=== PATIENT | male | born 1965 | race Two or more races ===

== ENCOUNTER 2018-06-07 16:47 | Inpatient (IN) | payer BC, OTHER ==
[2018-06-07] MEDS ORDERED: LEVOFLOXACIN 750 MG/D5W RTU 750 MG/150 ML RTUPB IV ONE (19:58)
--- NOTE | 2018-06-07 20:00 | ER Document Report ---
ED Medical Screen (RME) - General Chief Complaint: Foot Pain Stated Complaint: FOOT PAIN, SWELLING,OPEN WOUNDS Time Seen by Provider: 06/07/18 19:56 Notes: 53-year-old male who had a small treatment that involved fish eating on the feet in the [facility] recently. Since he has returned to [place] his feet are extremely swollen and painful with multiple areas of oozing. Denies any other major symptoms. Denies any fever, chills, sweats. Painful to stand up. Tetanus is up-to-date. I have greeted and performed a rapid initial assessment of this patient. A comprehensive ED assessment and evaluation of the patient, analysis of test results and completion of the medical decision making process will be conducted by additional ED providers. TRAVEL OUTSIDE OF THE [place] IN LAST 30 DAYS: No - Related Data Allergies/Adverse Reactions: No Known Allergies Allergy (Verified 06/07/18 16:49) Past Medical History - Social History Frequency of alcohol use: Occasional Drug Abuse: None Renal/ Medical History: Denies: Hx Peritoneal Dialysis Review of Systems - Review of Systems Notes: Review of systems positive for the following: Skin infection bilateral feet, bilateral feet pain, bilateral feet swelling Physical Exam - Vital signs Vitals: Temp Pulse Resp BP Pulse Ox 98.6 F 104 H 18 150/71 H 98 06/07/18 17:44 06/07/18 17:44 06/07/18 17:44 06/07/18 17:44 06/07/18 17:44 - Extremities General upper extremity: Normal inspection, Nontender, Normal color, Normal ROM , Normal temperature General lower extremity: Normal color, Normal ROM, Normal temperature, Other - The bilateral feet have multiple areas of ulceration and drainage. There is large amount of edema to the bilateral feet with signs of cellulitis.. No: David's sign Course - Vital Signs Vital signs: Temp Pulse Resp BP Pulse Ox 98.6 F 104 H 18 150/71 H 98 06/07/18 17:44 06/07/18 17:44 06/07/18 17:44 06/07/18 17:44 06/07/18 17:44
--- NOTE | 2018-06-07 21:36 | RADIOLOGY REPORT (SQ) ---
EXAM DESCRIPTION: FOOT BILATERAL 2 VIEWS COMPLETED DATE/TIME: 06/07/2018 8:34 pm REASON FOR STUDY: swelling, infection COMPARISON: None. NUMBER OF VIEWS: Two views. TECHNIQUE: AP and lateral radiographic images acquired of the right and left foot. LIMITATIONS: None. FINDINGS: MINERALIZATION: Normal. BONES: No acute fracture or dislocation. No worrisome bone lesions. JOINTS: No effusions. SOFT TISSUES: Soft tissue swelling each fluid, right more than left. No air is seen in the soft tiss ues. OTHER: No other significant finding. IMPRESSION: Soft tissue swelling. No osseous abnormality is appreciated. TECHNICAL DOCUMENTATION: JOB ID: [id number] [employer]- All Rights Reserved Reading location - IP/workstation name: [email or web address]
[2018-06-07 21:37] LABS: ABSOLUTE EOSINOPHILS # (AUTO) 0.2 10^3/uL (0.0-0.6); ABSOLUTE LYMPHOCYTES (AUTO) 2.9 10^3/uL (0.5-4.7); ABSOLUTE MONOCYTES (AUTO) 0.7 10^3/uL (0.1-1.4); ABSOLUTE NEUT (AUTO) 5.8 10^3/uL (1.7-8.2); BASOPHILS % (AUTO) 0.3 % (0-2); HEMATOCRIT 46.4 % (37.9-51.0); HEMOGLOBIN 15.8 g/dL (13.5-17.0); MEAN CORPUSCULAR HEMOGLOBIN 28.9 pg (27.0-33.4); MEAN CORPUSCULAR HGB CONC 34.2 g/dL (32.0-36.0); MEAN CORPUSCULAR VOLUME 85 fl (80-97); MONOCYTES % (AUTO) 7.3 % (3-13); PLATELET COUNT 236 10^3/uL (150-450); RED BLOOD COUNT 5.49 10^6/uL (4.35-5.55); RED CELL DISTRIBUTION WIDTH 13.8 % (11.5-14.0); SEGMENTED NEUTROPHILS % (AUTO) 60.4 % (42-78); TOTAL CELLS COUNTED % (AUTO) 100 %; WHITE BLOOD COUNT 9.6 10^3/uL (4.0-10.5)
[2018-06-07 22:05] LABS: ALANINE AMINOTRANSFERASE 31 U/L (21-72); ALBUMIN 4.1 g/dL (3.5-5.0); ALKALINE PHOSPHATASE 115 U/L (38-126); ANION GAP 13 (5-19); ASPARTATE AMINO TRANSFERASE 24 U/L (17-59); BILIRUBIN,DIRECT 0.3 mg/dL (0.0-0.4); BILIRUBIN,TOTAL 0.5 mg/dL (0.2-1.3); BLOOD UREA NITROGEN 14 mg/dL (7-20); CALCIUM 9.6 mg/dL (8.4-10.2); CARBON DIOXIDE 27 mmol/L (22-30); CHLORIDE 106 mmol/L (98-107); GLUCOSE 73 mg/dL (75-110); POTASSIUM 3.9 mmol/L (3.6-5.0); SODIUM 146.3 mmol/L (137-145); TOTAL PROTEIN 7.7 g/dL (6.3-8.2)
[2018-06-08] MEDS ORDERED: MORPHINE SULFATE 10 MG/ML INJ IV ONE (00:18)
[2018-06-08] MEDS ORDERED: ONDANSETRON HCL INJ/PF 4 MG/2 ML SDV IV ONE (00:18)
[2018-06-08] MEDS ORDERED: VANCOMYCIN HCL INJ 1000 MG VIAL IV ONE (00:22)
--- NOTE | 2018-06-08 00:24 | ER Document Report ---
ED General - General Chief Complaint: Foot Pain Stated Complaint: FOOT PAIN, SWELLING,OPEN WOUNDS Time Seen by Provider: 06/07/18 19:56 TRAVEL OUTSIDE OF THE [place] IN LAST 30 DAYS: No - HPI Patient complains to provider of: Bilateral foot pain Notes: Patient coming in for bilateral foot pain. Patient states was recently in the [facility] received a fish pedicure and now for approximately a week has had blistering redness and increased swelling and pain of his feet. Patient denies any fevers chills or night sweats. Patient denies any medical issues. Patient denies any recent antibiotics. Resting comfortably upon my evaluation. - Related Data Allergies/Adverse Reactions: No Known Allergies Allergy (Verified 06/07/18 16:49) Past Medical History - Social History Smoking Status: Current Every Day Smoker Frequency of alcohol use: Occasional Drug Abuse: None Family History: Reviewed & Not Pertinent Patient has suicidal ideation: No Patient has homicidal ideation: No Renal/ Medical History: Denies: Hx Peritoneal Dialysis Review of Systems - Review of Systems Constitutional: No symptoms reported EENT: No symptoms reported Cardiovascular: No symptoms reported Respiratory: No symptoms reported Gastrointestinal: No symptoms reported Genitourinary: No symptoms reported Male Genitourinary: No symptoms reported Musculoskeletal: No symptoms reported Skin: Other - Bilateral feet swelling pain Hematologic/Lymphatic: No symptoms reported Neurological/Psychological: No symptoms reported -: Yes All other systems reviewed and negative Physical Exam - Vital signs Vitals: Temp Pulse Resp BP Pulse Ox 98.6 F 104 H 18 150/71 H 98 06/07/18 17:44 06/07/18 17:44 06/07/18 17:44 06/07/18 17:44 06/07/18 17:44 Interpretation: Normal - General General appearance: Appears well, Alert - HEENT Head: Normocephalic, Atraumatic Eyes: Normal Pupils: PERRL - Respiratory Respiratory status: No respiratory distress Chest status: Nontender Breath sounds: Normal Chest palpation: Normal - Cardiovascular Rhythm: Regular Heart sounds: Normal auscultation Murmur: No - Abdominal Inspection: Normal Distension: No distension Bowel sounds: Normal Tenderness: Nontender Organomegaly: No organomegaly - Back Back: Normal, Nontender - Extremities General upper extremity: Normal inspection, Nontender, Normal color, Normal ROM , Normal temperature General lower extremity: Nontender, Normal color, Normal ROM, Normal temperature , Normal weight bearing. No: Normal inspection - Patient with bilateral swelling to the feet bilateral dorsalis pedis and posterior tibial pulses are intact Refill are intact. Multiple areas of blistering with diffuse redness along with discrimination in between multiple toes bilaterally. With purulent drainage consistent with an acute skin infection., David's sign - Neurological Neuro grossly intact: Yes Cognition: Normal Orientation: AAOx4 [place] Coma Scale Eye Opening: Spontaneous Jorje Coma Scale Verbal: Oriented Jorje Coma Scale Motor: Obeys Commands [place] Coma Scale Total: 15 Speech: Normal Motor strength normal: LUE, RUE, LLE, RLE Sensory: Normal - Psychological Associated symptoms: Normal affect, Normal mood - Skin Skin Temperature: Warm Skin Moisture: Dry Skin Color: Normal Course - Re-evaluation Re-evalutation: 06/08/18 05:09 Due to the exotic nature of the patient's source of infection a fish pedicure also due to the severity of the swelling and the infection looks like at this time do feel the best course to be admitted the patient for further IV antibiotics and further monitoring. Discussed with the hospitalist will admit - Vital Signs Vital signs: Temp Pulse Resp BP Pulse Ox 98.3 F 99 18 136/61 H 97 06/08/18 00:10 06/07/18 20:14 06/07/18 17:44 06/07/18 20:14 06/07/18 20:14 - Laboratory Result Diagrams: 06/07/18 20:53 06/07/18 20:53 Laboratory results interpreted by me: 06/07/18 20:53 Sodium 146.3 H Glucose 73 L Discharge - Discharge Clinical Impression: Cellulitis of both feet Condition: Good Disposition: ADMITTED INPATIENT Admitting Provider: Zoraida Quezada Unit Admitted: Medical Floor
[2018-06-08] MEDS ORDERED: MAG HYDROX/AL HYDROX/SIMETH SUSP 30 ML UDCUP PO PRN (02:45)
[2018-06-08] MEDS ORDERED: PROMETHAZINE HCL INJ 25 MG/1 ML VIAL IV PRN (02:45)
[2018-06-08] MEDS ORDERED: ACETAMINOPHEN 325 MG TABLET PO PRN (02:45)
[2018-06-08] MEDS ORDERED: HYDROMORPHONE HCL INJ/PF 2 MG/ML AMPULE IV PRN (02:55)
[2018-06-08] MEDS ORDERED: DOXYCYCLINE HYCLATE INJ 100 MG VIAL IV ONE (03:10)
--- NOTE | 2018-06-08 03:56 | PDOC H&P ---
History of Present Illness Admission Date/PCP: 06/08/18 00:53 Patient complains of: Feet infection History of Present Illness: BLAYNE BLAKE is a 53 year old male history of chronic back pain, came to the [facility] 1 week ago, he was there 2 weeks ago and tells me that he was at a fish Spa, this was the second time he was going with his family, first time all of them share a pool like space, but this time each of them had an individual glass fish container. The next day he started with a blister in the right lower extremity which opens and clear/brownish liquid spread to the rest of the foot causing same blisters, later on spread to the right foot. He has severe swelling, erythema, excruciating tenderness to palpation to the point that his had to buy crutches for him to walk. Denies fever, chills, nausea, vomiting or shortness of breath, chest pain, abdominal pain, lesions in other areas of his body. X-ray of the foot does not show any gas gangrene but shows soft tissue swelling. In the emergency department given IV Levaquin. Past Medical History Musculoskeltal Medical History: Reports: Other - Chronic back pain Past Surgical History Past Surgical History: Reports: None Social History Smoking Status: Current Every Day Smoker - Cigarettes a day Frequency of Alcohol Use: Occasional Hx Recreational Drug Use: No Family History Parental Family History Reviewed: Yes - No Contributory Children Family History Reviewed: NA Sibling(s) Family History Reviewed.: NA Medication/Allergy Allergies/Adverse Reactions: No Known Allergies Allergy (Verified 06/07/18 16:49) Review of Systems Review of Systems: As outlined in the HPI, all others negative Physical Exam Vital Signs: Temp Pulse Resp BP Pulse Ox 98.3 F 99 18 153/78 H 92 06/08/18 00:10 06/07/18 20:14 06/08/18 03:00 06/08/18 00:03 06/08/18 03:00 Additional comments: General appearance: Well-developed, well-nourished, alert and cooperative, and appears to be in no acute distress Head: Normocephalic Eyes: PEERL, EOMI, vision is grossly intact. Ears: External auditory canal and tympanic membranes clear, hearing grossly intact. Nose: No nasal discharge. Throat: Oral cavity and pharynx normal. No inflammation, swelling, exudate or lesions. Neck: Neck supple, nontender without lymphadenopathy, masses or thyromegaly. Cardiac: Normal S1 and S2. No S3, S4 or murmurs. Rhythm is regular. There is no peripheral edema, cyanosis or pallor. Extremities are warm and well perfused. Capillary refill is less than 2 seconds. No carotid bruits. Lungs: Clear to auscultation and percussion without rales, rhonchi, wheezing or diminished breath sounds. Not using accessory muscles. Abdomen: Positive bowel sounds. Soft. Nondistended, nontender. No guarding or rebound. No masses. No hepatosplenomegaly Extremities:: feet: ruptured blisters with necrotic base, brownish secretion, severe swelling with erythema and excruciating tenderness to palpation. More lesions in between toes and in the plantar area Neurological: Cranial nerves II through XII grossly intact. Strength and sensation symmetric and intact throughout. Reflexes 2+ throughout. Skin: As per above, warm and dry. Psychiatric: The mental examination revealed the patient was oriented to person , place, and time. The patient was able to demonstrate good judgment on recent , without hallucinations, abnormal affect or abnormal behaviors. Results Laboratory Results: 06/08/18 01:37 Lactic Acid 1.0 06/07/18 06/07/18 20:53 20:53 WBC 9.6 RBC 5.49 Hgb 15.8 Hct 46.4 MCV 85 MCH 28.9 MCHC 34.2 RDW 13.8 Plt Count 236 Seg Neutrophils % 60.4 Lymphocytes % 30.0 Monocytes % 7.3 Eosinophils % 2.0 Basophils % 0.3 Absolute Neutrophils 5.8 Absolute Lymphocytes 2.9 Absolute Monocytes 0.7 Absolute Eosinophils 0.2 Absolute Basophils 0.0 Sodium 146.3 H Potassium 3.9 Chloride 106 Carbon Dioxide 27 Anion Gap 13 BUN 14 Creatinine 0.66 Est GFR ( Amer) > 60 Est GFR (Non-Af Amer) > 60 Glucose 73 L Calcium 9.6 Total Bilirubin 0.5 Direct Bilirubin 0.3 AST 24 ALT 31 Alkaline Phosphatase 115 Total Protein 7.7 Albumin 4.1 Impressions: Foot X-Ray 06/07/18 19:56 IMPRESSION: Soft tissue swelling. No osseous abnormality is appreciated. Assessment & Plan - Diagnosis (1) Cellulitis of both feet Is this a current diagnosis for this admission?: Yes Plan: Patient has bilateral feet infection with red blisters that ruptured, secretions , associated with cellulitis. Unknown organism, cultures sent, we have to rule out Mycobacterium marinum as per his history, I called the lab to culture these bacteria. In the meantime I will give the patient with IV doxycycline and IV vancomycin. Please follow blood cultures. IV Dilaudid as needed. 1 dose of his steroids given to the patient, I am going to hold on the steroids. Will place him on p.o. ibuprofen. (2) Nicotine dependence Is this a current diagnosis for this admission?: Yes Plan: Nicotine patch 14 mg a day - Time Time Spent: 30 to 50 Minutes - Inpatient Certification Medical Necessity: Risk of Complication if Not Cared For in Hospital
[2018-06-08] MEDS: HEPARIN SOD (PORCINE) 5,000 UNIT/ML 1 ML SYRINGE SUBCUT SCH ×3 (06:09→21:31)
[2018-06-08] MEDS: IBUPROFEN 400 MG TABLET PO SCH ×3 (06:09→22:59)
[2018-06-08 06:51] LABS: ANION GAP 11 (5-19); BLOOD UREA NITROGEN 12 mg/dL (7-20); CALCIUM 9.5 mg/dL (8.4-10.2); CARBON DIOXIDE 25 mmol/L (22-30); CHLORIDE 108 mmol/L (98-107); GLUCOSE 85 mg/dL (75-110); POTASSIUM 4.2 mmol/L (3.6-5.0); SODIUM 143.9 mmol/L (137-145)
[2018-06-08] MEDS: NICOTINE 14 MG/24 HR PATCH.TD24 TD SCH (13:08)
[2018-06-08] MEDS: OXYCODONE-ACETAMINOPHEN 5-325 MG TABLET PO PRN (13:20)
[2018-06-08] MEDS ORDERED: GLUCAGON,HUMAN RECOMB 1 MG INJ SUBCUT PRN (18:11)
[2018-06-08] MEDS ORDERED: DEXTROSE 40% GEL 15 GM TUBE PO PRN ×2 (18:11)
[2018-06-08] MEDS ORDERED: DEXTROSE 50%-WATER 25 GM/50 ML DISP.SYRIN IV PRN ×2 (18:11)
--- NOTE | 2018-06-08 18:11 | PDOC CONSULTATION ---
Consultation Consult Date: 06/08/18 Consult reason:: Bilateral feet infections History of Present Illness Admission Date/PCP: 06/08/18 00:53 Patient complains of: pains on both feet History of Present Illness: BLAYNE BLAKE is a 53 year old male who went to the [facility] and had " foot spa" with swarm of small fish about 3 weeks ago without any problems. About 2 weeks ago had another "foot Spa" and this time in an individual aquarium like area for 30 min. Immediately after developed itching in both feet then gradually followed by blister formations. Went to Urgent care yesterday and referred to ED and subsequently admitted for cellulitis with broken blisters in both feet including toe areas. He claims the swelling was worse yesterday and his bought him a pair of crutches so he does not bear too much weight on both feet. Denies fever/chills groin lymphangitis. Past Medical History Musculoskeltal Medical History: Reports: Other - Chronic back pain Past Surgical History Past Surgical History: Reports: None Social History Smoking Status: Current Every Day Smoker Cigarettes Packs Per Day: 1 Number of Years Smokin Last Time Smoked: 06/07/2018 Frequency of Alcohol Use: Occasional Hx Recreational Drug Use: No Drugs: None Hx Prescription Drug Abuse: No - Advance Directive Resuscitation Status: Full Code Family History Family History: Reviewed & Not Pertinent Parental Family History Reviewed: Yes Children Family History Reviewed: No Sibling(s) Family History Reviewed.: No Medication/Allergy Home Medications: Ibuprofen [Motrin 800 mg Tablet] 800 mg PO Q8HP PRN 06/08/18 Allergies/Adverse Reactions: No Known Allergies Allergy (Verified 06/07/18 16:49) Review of Systems Constitutional: PRESENT: as per HPI Eyes: PRESENT: other - no visual/hearing changes Cardiovascular: PRESENT: other - no cough/chest pains Gastrointestinal: PRESENT: other - no pains Genitourinary: PRESENT: other - no dysuria Musculoskeletal: PRESENT: back pain Integumentary: PRESENT: pruritus - both feet, wounds - multiple areas of dry blisters with at least one area on the right and left foot with appears to be small abscesses Neurological: PRESENT: other - no paresthesias Physical Exam Vital Signs: Temp Pulse Resp BP Pulse Ox 98.1 F 54 L 16 150/53 H 99 06/08/18 15:28 06/08/18 15:28 06/08/18 15:28 06/08/18 15:28 06/08/18 15:28 Intake & Output 06/07/18 06/08/18 06/09/18 06:59 06:59 06:59 Intake Total 240 Balance 240 Weight 68.1 kg General appearance: PRESENT: no acute distress Head exam: PRESENT: atraumatic Eye exam: PRESENT: conjunctiva pink Mouth exam: PRESENT: moist Neck exam: PRESENT: full ROM Respiratory exam: PRESENT: clear to auscultation diamond Cardiovascular exam: PRESENT: RRR Pulses: PRESENT: +2 pedal pulses bilateral Vascular exam: PRESENT: normal capillary refill GI/Abdominal exam: PRESENT: rigid Rectal exam: PRESENT: deferred Extremities exam: PRESENT: tenderness - both feet, +1 edema - both feet Musculoskeletal exam: PRESENT: ambulatory Neurological exam: PRESENT: alert, oriented to person, oriented to place, oriented to time, oriented to situation Psychiatric exam: PRESENT: appropriate affect Skin exam: PRESENT: erythema, vesicles - dry, warm Results Laboratory Results: 06/08/18 06:25 06/08/18 06/08/18 01:37 06:25 Sodium 143.9 Potassium 4.2 Chloride 108 H Carbon Dioxide 25 Anion Gap 11 BUN 12 Creatinine 0.72 Est GFR ( Amer) > 60 Est GFR (Non-Af Amer) > 60 Glucose 85 Lactic Acid 1.0 Calcium 9.5 Impressions: Foot X-Ray 06/07/18 19:56 IMPRESSION: Soft tissue swelling. No osseous abnormality is appreciated. Assessment & Plan - Diagnosis (1) Abscess Is this a current diagnosis for this admission?: Yes - Time Time Spent: 30 to 50 Minutes - Inpatient Certification Medical Necessity: Need For IV Fluids, Need for IV Antibiotics, Need for Surgery - Plan Summary Plan Summary: Will schedule I&D and biopsy right foot in OR tomorrow under local [facility]
[2018-06-08] MEDS: VANCOMYCIN HCL 750 MG in DEXTROSE 5%-WATER 250 ML IV SCH (20:20)
[2018-06-08] MEDS: DOXYCYCLINE HYCLATE 100 MG in DEXTROSE 5%-WATER 250 ML IV SCH (23:01)
[2018-06-09 00:39] LABS: ABSOLUTE EOSINOPHILS # (AUTO) 0.4 10^3/uL (0.0-0.6); ABSOLUTE LYMPHOCYTES (AUTO) 2.9 10^3/uL (0.5-4.7); ABSOLUTE MONOCYTES (AUTO) 0.6 10^3/uL (0.1-1.4); ABSOLUTE NEUT (AUTO) 2.7 10^3/uL (1.7-8.2); BASOPHILS % (AUTO) 0.5 % (0-2); EOSINOPHILS % (AUTO) 5.5 % (0-6); HEMATOCRIT 43.8 % (37.9-51.0); HEMOGLOBIN 14.9 g/dL (13.5-17.0); LYMPHOCYTES % (AUTO) 44.1 % (13-45); MEAN CORPUSCULAR HEMOGLOBIN 28.7 pg (27.0-33.4); MEAN CORPUSCULAR HGB CONC 34.1 g/dL (32.0-36.0); MEAN CORPUSCULAR VOLUME 84 fl (80-97); MONOCYTES % (AUTO) 8.5 % (3-13); PLATELET COUNT 187 10^3/uL (150-450); RED BLOOD COUNT 5.21 10^6/uL (4.35-5.55); RED CELL DISTRIBUTION WIDTH 13.4 % (11.5-14.0); SEGMENTED NEUTROPHILS % (AUTO) 41.4 % (42-78); TOTAL CELLS COUNTED % (AUTO) 100 %; WHITE BLOOD COUNT 6.5 10^3/uL (4.0-10.5)
[2018-06-09 01:07] LABS: ANION GAP 13 (5-19); BLOOD UREA NITROGEN 15 mg/dL (7-20); CALCIUM 9.1 mg/dL (8.4-10.2); CARBON DIOXIDE 23 mmol/L (22-30); CHLORIDE 108 mmol/L (98-107); GLUCOSE 139 mg/dL (75-110); POTASSIUM 3.9 mmol/L (3.6-5.0); SODIUM 144.4 mmol/L (137-145)
[2018-06-09] MEDS: VANCOMYCIN HCL 750 MG in DEXTROSE 5%-WATER 250 ML IV SCH ×3 (01:29→18:30)
[2018-06-09] MEDS ORDERED: VANCOMYCIN HCL INJ 500 MG VIAL IV SCH (03:00)
[2018-06-09] MEDS: HEPARIN SOD (PORCINE) 5,000 UNIT/ML 1 ML SYRINGE SUBCUT SCH ×3 (05:45→21:49)
--- NOTE | 2018-06-09 05:55 | PDOC PROGRESS REPORT ---
Subjective Progress Note for:: 06/08/18 Subjective:: The patient is resting quietly. No new complaints. Reason For Visit: FEET CELLULITIS Physical Exam Vital Signs: Temp Pulse Resp BP Pulse Ox 97.7 F 78 16 120/68 97 06/08/18 23:42 06/08/18 23:42 06/08/18 23:42 06/08/18 23:42 06/08/18 23:42 Intake & Output 06/07/18 06/08/18 06/09/18 06:59 06:59 06:59 Intake Total 990 Balance 990 Weight 68.1 kg General appearance: PRESENT: no acute distress, cooperative, well-developed, well-nourished Respiratory exam: PRESENT: other - No increased work of breathing.. ABSENT: rales, rhonchi, wheezes Cardiovascular exam: PRESENT: RRR. ABSENT: gallop, rubs, systolic murmur Pulses: PRESENT: normal dorsalis pedis pul GI/Abdominal exam: PRESENT: soft. ABSENT: distended, hernia, tenderness Rectal exam: PRESENT: deferred Extremities exam: PRESENT: other - plantar aspects of feet bilaterally with erythema and multiple small ulcerations over the entire foot. Neurological exam: PRESENT: alert, awake, oriented to person, oriented to place , oriented to time, CN II-XII grossly intact. ABSENT: motor sensory deficit Psychiatric exam: PRESENT: appropriate affect, normal mood Skin exam: PRESENT: dry, intact, warm, other - Except for plantar aspects of feet as discussed under extremities. Results Laboratory Results: 06/09/18 00:30 06/09/18 00:30 06/08/18 06/09/18 06/09/18 06:25 00:30 00:30 WBC 6.5 RBC 5.21 Hgb 14.9 Hct 43.8 MCV 84 MCH 28.7 MCHC 34.1 RDW 13.4 Plt Count 187 Seg Neutrophils % 41.4 L Lymphocytes % 44.1 Monocytes % 8.5 Eosinophils % 5.5 Basophils % 0.5 Absolute Neutrophils 2.7 Absolute Lymphocytes 2.9 Absolute Monocytes 0.6 Absolute Eosinophils 0.4 Absolute Basophils 0.0 Sodium 143.9 144.4 Potassium 4.2 3.9 Chloride 108 H 108 H Carbon Dioxide 25 23 Anion Gap 11 13 BUN 12 15 Creatinine 0.72 0.68 Est GFR ( Amer) > 60 > 60 Est GFR (Non-Af Amer) > 60 > 60 Glucose 85 139 H Calcium 9.5 9.1 Impressions: Foot X-Ray 06/07/18 19:56 IMPRESSION: Soft tissue swelling. No osseous abnormality is appreciated. 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 Need Biopsy for tissue diagnosis. (3) Cellulitis of both feet Is this a current diagnosis for this admission?: Yes Plan: General surgery consult to obtain biopsy for tissue culture. (4) Nicotine dependence Is this a current diagnosis for this admission?: Yes Plan: nicotine patch - Time Time Spent with patient: 34 minutes Time Spent with patient: 25-34 minutes
[2018-06-09] MEDS: IBUPROFEN 400 MG TABLET PO SCH ×3 (06:26→21:48)
[2018-06-09 07:52] LABS: ABSOLUTE EOSINOPHILS # (AUTO) 0.3 10^3/uL (0.0-0.6); ABSOLUTE MONOCYTES (AUTO) 0.5 10^3/uL (0.1-1.4); ABSOLUTE NEUT (AUTO) 2.7 10^3/uL (1.7-8.2); BASOPHILS % (AUTO) 0.4 % (0-2); MEAN CORPUSCULAR HGB CONC 34.2 g/dL (32.0-36.0); TOTAL CELLS COUNTED % (AUTO) 100 %
[2018-06-09 07:58] LABS: ABSOLUTE LYMPHOCYTES (AUTO) 2.7 10^3/uL (0.5-4.7); EOSINOPHILS % (AUTO) 4.3 % (0-6); HEMATOCRIT 43.2 % (37.9-51.0); HEMOGLOBIN 14.8 g/dL (13.5-17.0); LYMPHOCYTES % (AUTO) 43.1 % (13-45); MEAN CORPUSCULAR HEMOGLOBIN 28.9 pg (27.0-33.4); MEAN CORPUSCULAR VOLUME 85 fl (80-97); MONOCYTES % (AUTO) 8.2 % (3-13); PLATELET COUNT 194 10^3/uL (150-450); RED BLOOD COUNT 5.11 10^6/uL (4.35-5.55); RED CELL DISTRIBUTION WIDTH 13.3 % (11.5-14.0); WHITE BLOOD COUNT 6.2 10^3/uL (4.0-10.5)
[2018-06-09] MEDS ORDERED: LIDOCAINE 2% INJ-PF (20 MG/ML) 10 ML AMPUL ONE (09:56)
[2018-06-09] MEDS ORDERED: FENTANYL CITRATE INJ/PF 100 MCG/2 ML AMPUL ONE (09:56)
[2018-06-09] MEDS ORDERED: MIDAZOLAM 2 MG/2 ML INJ ONE (09:56)
[2018-06-09] MEDS ORDERED: PROPOFOL INJ 200 MG/20 ML VIAL IV ONE (09:56)
[2018-06-09] MEDS ORDERED: ACETAMINOPHEN 1,000 MG/100 ML RTUPB IV ONE (09:57)
[2018-06-09] MEDS ORDERED: MEPERIDINE HCL/PF INJ 25 MG/1 ML DISP.SYRIN IV PRN (10:17)
[2018-06-09] MEDS ORDERED: DIPHENHYDRAMINE HCL 50 MG/ML VIAL IV PRN (10:17)
[2018-06-09] MEDS ORDERED: PROMETHAZINE HCL INJ 25 MG/1 ML VIAL IV PRN ×2 (10:17)
[2018-06-09] MEDS ORDERED: ONDANSETRON HCL INJ/PF 4 MG/2 ML SDV IV PRN (10:17)
[2018-06-09] MEDS ORDERED: FENTANYL CITRATE INJ/PF 100 MCG/2 ML AMPUL IV PRN ×3 (10:17)
[2018-06-09] MEDS ORDERED: LIDOCAINE 1% INJ-PF (10 MG/ML) 30 ML SDV ONE (10:23)
[2018-06-09] MEDS: OXYCODONE-ACETAMINOPHEN 5-325 MG TABLET PO PRN ×2 (11:46→15:52)
[2018-06-09] MEDS: NORMAL SALINE 1000 ML 1,000 ML IV PRN (11:53)
--- NOTE | 2018-06-09 12:20 | EKG REPORT ---
SEVERITY:- ABNORMAL ECG - SINUS RHYTHM BORDERLINE RIGHT AXIS DEVIATION ABNORMAL T, CONSIDER ISCHEMIA, INFERIOR LEADS : Confirmed by: Precious Salazar MD 09-Jun-2018 12:19:41
--- NOTE | 2018-06-09 12:46 | OPERATIVE REPORT E ---
Operative Report NAME: BLAYNE BLAKE : 1965 AGE: 53Y DATE OF SURGERY: 06/09/2018 ROOM: 415 PREOPERATIVE DIAGNOSIS: Infections of both feet with abscess of the right foot. POSTOPERATIVE DIAGNOSIS: Infections of both feet with abscess of the right foot. OPERATION: Incision and drainage and culture of right foot abscess. SURGEON: SEVERIANO GREEN M.D. ANESTHESIA: Local and MAC. INDICATION: This is a 53-year-old male who had a "foot spa of both feet" in the [facility] about 3 weeks ago. The patient developed infections of both feet with multiple areas of skin excoriations. Culture and biopsy were requested, primarily for mycobacterium marinum. DESCRIPTION OF PROCEDURE: After adequate IV sedation, both feet where then washed and the right foot was then prepped and draped in the usual sterile fashion. Appropriate timeout was then called. Local anesthesia infiltrated along the right medial foot where there appears to have some fluctuation and redness. Anesthesia was infiltrated at the site and a small vertical incision over the area was made with a 15 blade. Minimal amount of fluid was removed and a piece of the skin also was sent together with drainage for culture with Gram-stain and culture primarily for mycobacterium marinum. However, lesions in both feet appear to be getting better. At any rate the bleeding site was controlled with a cautery and all the lesions on both feet where covered with Xeroform gauze, 4 x 4, and wrapped with Arsalan. The patient tolerated the procedure well. The patient then brought to the recovery room in satisfactory condition. Blood loss was about 1 mL. DICTATING PHYSICIAN: SEVERIANO GREEN M.D. [id number] PHY#: [id number] ID: [id number] JOB#: [id number] ACCT: [id number] cc:SEVERIANO GREEN M.D. >
[2018-06-09] MEDS: DOXYCYCLINE HYCLATE 100 MG in DEXTROSE 5%-WATER 250 ML IV SCH ×2 (13:57→21:47)
[2018-06-09] MEDS: NICOTINE 14 MG/24 HR PATCH.TD24 TD SCH (14:11)
[2018-06-09 18:06] LABS: VANCOMYCIN,TROUGH < 5.0 ug/mL (5.0-20.0)
[2018-06-10] MEDS: VANCOMYCIN HCL 750 MG in DEXTROSE 5%-WATER 250 ML IV SCH ×2 (01:18→09:22)
[2018-06-10] MEDS: NORMAL SALINE 1000 ML 1,000 ML IV PRN ×2 (01:19→23:29)
[2018-06-10] MEDS: IBUPROFEN 400 MG TABLET PO SCH ×3 (05:17→22:19)
[2018-06-10] MEDS: HEPARIN SOD (PORCINE) 5,000 UNIT/ML 1 ML SYRINGE SUBCUT SCH ×4 (05:17→22:21)
[2018-06-10 10:23] LABS: ABSOLUTE EOSINOPHILS # (AUTO) 0.3 10^3/uL (0.0-0.6); ABSOLUTE LYMPHOCYTES (AUTO) 2.9 10^3/uL (0.5-4.7); ABSOLUTE MONOCYTES (AUTO) 0.3 10^3/uL (0.1-1.4); ABSOLUTE NEUT (AUTO) 2.8 10^3/uL (1.7-8.2); BASOPHILS % (AUTO) 0.5 % (0-2); EOSINOPHILS % (AUTO) 5.4 % (0-6); HEMATOCRIT 42.3 % (37.9-51.0); HEMOGLOBIN 14.4 g/dL (13.5-17.0); LYMPHOCYTES % (AUTO) 45.1 % (13-45); MEAN CORPUSCULAR HEMOGLOBIN 28.8 pg (27.0-33.4); MEAN CORPUSCULAR HGB CONC 34.1 g/dL (32.0-36.0); MEAN CORPUSCULAR VOLUME 85 fl (80-97); MONOCYTES % (AUTO) 5.4 % (3-13); PLATELET COUNT 193 10^3/uL (150-450); RED CELL DISTRIBUTION WIDTH 13.2 % (11.5-14.0); SEGMENTED NEUTROPHILS % (AUTO) 43.6 % (42-78); TOTAL CELLS COUNTED % (AUTO) 100 %; WHITE BLOOD COUNT 6.4 10^3/uL (4.0-10.5)
[2018-06-10 10:29] LABS: ANION GAP 11 (5-19); BLOOD UREA NITROGEN 12 mg/dL (7-20); CALCIUM 9.3 mg/dL (8.4-10.2); CARBON DIOXIDE 23 mmol/L (22-30); CHLORIDE 112 mmol/L (98-107); GLUCOSE 143 mg/dL (75-110); POTASSIUM 4.1 mmol/L (3.6-5.0); SODIUM 145.7 mmol/L (137-145)
[2018-06-10] MEDS: OXYCODONE-ACETAMINOPHEN 5-325 MG TABLET PO PRN (11:13)
[2018-06-10] MEDS: PIPERACILLIN SODIUM/TAZOBACTAM 3.375 GM in NORMAL SALINE 100 ML IV SCH ×2 (12:27→17:13)
--- NOTE | 2018-06-10 14:16 | PDOC PROGRESS REPORT ---
Subjective Progress Note for:: 06/10/18 Subjective:: The patient is resting quietly. No new complaints. Reason For Visit: FEET CELLULITIS Physical Exam Vital Signs: Temp Pulse Resp BP Pulse Ox 97.7 F 90 18 127/72 H 99 06/10/18 11:08 06/10/18 11:08 06/10/18 11:08 06/10/18 11:08 06/10/18 11:08 Intake & Output 06/09/18 06/10/18 06/11/18 06:59 06:59 06:59 Intake Total 990 3592 Output Total 5 Balance 990 3587 Weight 68.1 kg 71 kg General appearance: PRESENT: no acute distress, cooperative, other - The patient is frustrated and discouraged that he will not be discharged today. Respiratory exam: PRESENT: other - No increased work of breathing. No tactile fremitus.. ABSENT: rales, rhonchi, wheezes Cardiovascular exam: PRESENT: RRR, other - No lateral PMI. No thrills.. ABSENT : gallop, rubs, systolic murmur GI/Abdominal exam: PRESENT: normal bowel sounds, soft. ABSENT: hernia, mass, organolmegaly, tenderness Rectal exam: PRESENT: deferred Extremities exam: PRESENT: tenderness, other - Feet are bandaged bilaterally.. ABSENT: clubbing Musculoskeletal exam: ABSENT: deformity, dislocation Neurological exam: PRESENT: alert, awake, oriented to person, oriented to place , oriented to time, oriented to situation, CN II-XII grossly intact. ABSENT: motor sensory deficit Skin exam: PRESENT: dry, intact, warm Results Laboratory Results: 06/10/18 09:48 06/10/18 09:48 06/10/18 06/10/18 09:48 09:48 WBC 6.4 RBC 5.00 Hgb 14.4 Hct 42.3 MCV 85 MCH 28.8 MCHC 34.1 RDW 13.2 Plt Count 193 Seg Neutrophils % 43.6 Lymphocytes % 45.1 H Monocytes % 5.4 Eosinophils % 5.4 Basophils % 0.5 Absolute Neutrophils 2.8 Absolute Lymphocytes 2.9 Absolute Monocytes 0.3 Absolute Eosinophils 0.3 Absolute Basophils 0.0 Sodium 145.7 H Potassium 4.1 Chloride 112 H Carbon Dioxide 23 Anion Gap 11 BUN 12 Creatinine 0.68 Est GFR ( Amer) > 60 Est GFR (Non-Af Amer) > 60 Glucose 143 H Calcium 9.3 06/08/18 00:55 Foot - Superficial Gram Stain - Final 06/08/18 00:55 Foot - Superficial Wound Culture - Final Pseudomonas Aeruginosa Staphylococcus Aureus Group A Beta Streptococcus Skin [place] Impressions: Foot X-Ray 06/07/18 19:56 IMPRESSION: Soft tissue swelling. No osseous abnormality is appreciated. Assessment & Plan - Diagnosis (1) DM II (diabetes mellitus, type II), controlled Qualifiers: Diabetes mellitus oysterman insulin use: unspecified oysterman insulin use status Is this a current diagnosis for this admission?: Yes (2) Abscess Is this a current diagnosis for this admission?: Yes Plan: General surgery consult. AFB is pending off of tissue, wound cultures have grown out pseudomonas, Staph aureus, and pseudomonas. Awaiting results of tissue culture for AFB and sensitivities are pending. I will discuss the patient with ID tomorrow in order to determine whether IV antibiotics are required and for how long. The patient is very impatient to leave. I hope that he can discharge tomorrow. (3) Cellulitis of both feet Is this a current diagnosis for this admission?: Yes Plan: General surgery consult to obtain biopsy for tissue culture. AFB is pending off of tissue, wound cultures have grown out pseudomonas, Staph aureus, and pseudomonas. (4) Nicotine dependence Is this a current diagnosis for this admission?: Yes Plan: nicotine patch - Time Time Spent with patient: 25-34 minutes Medications reviewed and adjusted accordingly: Yes Anticipated discharge: Home - Inpatient Certification Based on my medical assessment, after consideration of the patient's comorbidities, presenting symptoms, or acuity I expect that the services needed warrant INPATIENT care.: Yes I certify that my determination is in accordance with my understanding of Medicare's requirements for reasonable and necessary INPATIENT services [42 CFR 412.3e].: Yes Medical Necessity: Significant Comorbidiites Make Outpatient Treatment Too Risky , Need Close Monitoring Due to Risk of Patient Decompensation, Need for IV Antibiotics, Need for Surgery
--- NOTE | 2018-06-10 15:18 | PDOC PROGRESS REPORT ---
Subjective Progress Note for:: 06/10/18 Subjective:: Pains both feet Reason For Visit: FEET CELLULITIS Physical Exam Vital Signs: Temp Pulse Resp BP Pulse Ox 97.7 F 90 18 127/72 H 99 06/10/18 11:08 06/10/18 11:08 06/10/18 11:08 06/10/18 11:08 06/10/18 11:08 Intake & Output 06/09/18 06/10/18 06/11/18 06:59 06:59 06:59 Intake Total 990 3592 Output Total 5 Balance 990 3587 Weight 68.1 kg 71 kg Exam: All wounds in both feet are all relatively clean. All xeroform gauze and dressings removed. Still with swelling of both feet Gm stain B strep and awaiting Mycobacterium culture Results Laboratory Results: 06/10/18 09:48 06/10/18 09:48 06/10/18 06/10/18 09:48 09:48 WBC 6.4 RBC 5.00 Hgb 14.4 Hct 42.3 MCV 85 MCH 28.8 MCHC 34.1 RDW 13.2 Plt Count 193 Seg Neutrophils % 43.6 Lymphocytes % 45.1 H Monocytes % 5.4 Eosinophils % 5.4 Basophils % 0.5 Absolute Neutrophils 2.8 Absolute Lymphocytes 2.9 Absolute Monocytes 0.3 Absolute Eosinophils 0.3 Absolute Basophils 0.0 Sodium 145.7 H Potassium 4.1 Chloride 112 H Carbon Dioxide 23 Anion Gap 11 BUN 12 Creatinine 0.68 Est GFR ( Amer) > 60 Est GFR (Non-Af Amer) > 60 Glucose 143 H Calcium 9.3 06/08/18 00:55 Foot - Superficial Gram Stain - Final 06/08/18 00:55 Foot - Superficial Wound Culture - Final Pseudomonas Aeruginosa Staphylococcus Aureus Group A Beta Streptococcus Skin [place] Impressions: Foot X-Ray 06/07/18 19:56 IMPRESSION: Soft tissue swelling. No osseous abnormality is appreciated. Assessment & Plan - Diagnosis (1) Abscess Is this a current diagnosis for this admission?: Yes - Time Time Spent with patient: 15-24 minutes - Inpatient Certification Medical Necessity: Need for Pain Control, Need for IV Antibiotics - Plan Summary Plan Summary: Continue IV antibiotics and leg elevation.
[2018-06-10] MEDS: NICOTINE 14 MG/24 HR PATCH.TD24 TD SCH (16:13)
[2018-06-10] MEDS: VANCOMYCIN HCL 1,000 MG in DEXTROSE 5%-WATER 250 ML IV SCH (18:30)
[2018-06-10] MEDS: DOXYCYCLINE HYCLATE 100 MG TABLET PO SCH (22:21)
[2018-06-11] MEDS: PIPERACILLIN SODIUM/TAZOBACTAM 3.375 GM in NORMAL SALINE 100 ML IV SCH ×4 (00:20→17:19)
[2018-06-11] MEDS: VANCOMYCIN HCL 1,000 MG in DEXTROSE 5%-WATER 250 ML IV SCH ×3 (01:04→18:06)
[2018-06-11] MEDS: HEPARIN SOD (PORCINE) 5,000 UNIT/ML 1 ML SYRINGE SUBCUT SCH ×2 (05:40→14:38)
[2018-06-11] MEDS: IBUPROFEN 400 MG TABLET PO SCH ×2 (05:50→13:02)
[2018-06-11] MEDS: NICOTINE 14 MG/24 HR PATCH.TD24 TD SCH (09:37)
[2018-06-11] MEDS: DOXYCYCLINE HYCLATE 100 MG TABLET PO SCH (09:43)
--- NOTE | 2018-06-11 16:38 | Progress Note ---
Provider Note Provider Note: ID Consult Note Asked to provide input regarding antibiotic selection and duration. Pt not seen or examined. Reviewed chart. Spoke briefly with Dr Dos Santos who is taking care of the patient via telephone. Mr. Myles is a 53 year old man who presented on 06/08/18 with c/o infection involving both of his feet, with increasing redness, pain and swelling involving his feet developing over the past week. The patient reported in the [facility] 2 weeks ago where he had two trips to a fish spa where fish are allowed to feed on the skin on the feet. Following his second trip to the fish spa, he developed a blister to the RLE that then opened and drained clear/ brownish fluid. Pt reported having the same problem spread to the rest of his foot with blisters developing and also involvement of his other foot as well, with severe swelling, erythema and tenderness. Exam was notable for multiple areas of blisters to both feet with at least one area on the right and left foot with what appeared to be small abscesses, edema and erythema involving both feet. Pt had plain films of right and left feet on presentation that showed no worrisome bone lesions, no gas or foreign body in the tissues, only soft tissue swelling. Surgical consultation was sought. Pt was taken to the OR on 06/09/18 for I&D and culture of R foot abscess. A minimal amount of fluid was removed along with a piece of skin over an area with some fluctuation and redness. Culture from the OR thus far has been reported as showing rare GPCs on Gram stain and 2+ GPC in clusters and 4+ Group A Strep from the culture preliminarily. Superficial wound swab from 06/08 showed 2+ GPCs and rare GNRs and grew 2+ Pseudomonas aeruginosa, 4+ MSSA, 4+ Group A Strep and 4+ skin abad. The patient received 1 dose of Levofloxacin in the ED. Doxycycline was started on 06/08 along with IV vancomycin and IV Zosyn was started on 06/10. The patient has been reported to have had a great deal of improvement and feels ready for discharge home. Impression/Recommendations Acute polymicrobial bacterial skin/soft tissue infection with Group A Strep and MSSA of bilateral feet, less likely Pseudomonas - acute presentation of the patient and rapid improvement with treatment with IV doxycycline and IV vancomycin suggests typical bacterial cause of skin infection - although the patient received a dose of Levofloxacin at in the ED, the improvement of the patient on primarily gram positive/non-pseudomonal drugs over the next 3 days and the small number of GNRs on Gram stain of the superficial swab suggests that the Pseudomonas aeruginosa is more likely a contaminant in the than a true pathogen. If no growth of Pseudomonas from operative culture, anti-Pseudomonal antibiotic therapy should not be needed. - However, with the operative culture still only preliminarily reported, pt unwilling to stay for culture to be finalized and water exposure in conjunction with wound development, inclusion of antipseudomonal activity would be reasonable in an oral step-down regimen for pt to continue taking at discharge, along with anti-MSSA/anti-Strep treatment, such as Keflex PO 500 mg QID plus Cipro 500 mg BID. Duration of therapy depends on severity of infection and response to treatment. Another 7 days might be appropriate but depends on how pt is doing clinically Luis Rodriguez MD COUNT INCLUDES THE [facility] Infectious Diseases pager [phone]
[2018-06-11 18:15] LABS: VANCOMYCIN,TROUGH 10.2 ug/mL (5.0-20.0)
[2018-06-11 18:22] VITALS: BP 143/71
--- NOTE | 2018-06-11 23:21 | PDOC DISCHARGE SUMMARY ---
General - Admit/Disc Date/PCP Admission Date/Primary Care Provider: 06/08/18 00:53 Discharge Date: 06/11/18 - Discharge Diagnosis (1) DM II (diabetes mellitus, type II), controlled Is this a current diagnosis for this admission?: Yes Summary: Continue home medications. (2) Abscess Is this a current diagnosis for this admission?: Yes Summary: S/P I&D by general surgery. I appreciate his assistance. (3) Cellulitis of both feet Is this a current diagnosis for this admission?: Yes Summary: Cultures have grown out Group A Strep, pseudomonas, and MSSA. Tissue cultures for AFB are pending. I have discussed the patient with Dr. Rodriguez. She has recommended discharge on PO Keflex and Cipro. She feels that it is unlikely that the patient's AFB's will be positive. (4) Nicotine dependence Is this a current diagnosis for this admission?: Yes - Additional Information Resuscitation Status: Full Code Discharge Diet: Diabetic Discharge Activity: Activity As Tolerated, No Driving Prescriptions: Cephalexin Monohydrate [Keflex 500 mg Capsule] 500 mg PO Q8H #21 capsule Ciprofloxacin HCl [Cipro 500 mg Tablet] 500 mg PO BID #14 tablet Oxycodone HCl/Acetaminophen [Percocet 5-325 mg Tablet] 1 tab PO Q4HP PRN #20 tablet PRN Reason: Home Medications: Ibuprofen [Motrin 800 mg Tablet] 800 mg PO Q8HP PRN 06/08/18 Cephalexin Monohydrate [Keflex 500 mg Capsule] 500 mg PO Q8H #21 capsule Ciprofloxacin HCl [Cipro 500 mg Tablet] 500 mg PO BID #14 tablet 06/11/18 Oxycodone HCl/Acetaminophen [Percocet 5-325 mg Tablet] 1 tab PO Q4HP PRN #20 tablet 06/11/18 History of Present Illness History of Present Illness: BLAYNE BLAKE is a 53 year old male Hospital Course Hospital Course: The patient was admitted to a medical bed and was started on Doxycycline and Vancomycin. The patient was taken to the OR by general surgery for I&D and biopsy of the abscess and cellulitis. Cultures were taken as was tissue for AFB cultures.The patient improved quickly. I have discussed the patient with Dr. Rodriguez with infectious disease from [facility]. Cultures have grown out Group A Strep, pseudomonas, and MSSA. Tissue cultures for AFB are pending. I have discussed the patient with Dr. Rodriguez. She has recommended discharge on PO Keflex and Cipro. She feels that it is unlikely that the patient's AFB's will be positive. The patient was discharged from home. Physical Exam Vital Signs: Temp Pulse Resp BP Pulse Ox 98.5 F 81 17 143/71 H 98 06/11/18 18:18 06/11/18 18:18 06/11/18 18:18 06/11/18 18:18 06/11/18 18:18 Intake & Output 06/10/18 06/11/18 06/12/18 06:59 06:59 06:59 Intake Total 3592 3053 1092 Output Total 5 1550 Balance 3587 1503 1092 Weight 71 kg 72.1 kg General appearance: PRESENT: no acute distress, cooperative Respiratory exam: PRESENT: other - No increased work of breathing.. ABSENT: rales, rhonchi, wheezes Cardiovascular exam: PRESENT: RRR. ABSENT: gallop, rubs, systolic murmur GI/Abdominal exam: PRESENT: normal bowel sounds, soft. ABSENT: distended, hernia, tenderness Rectal exam: PRESENT: deferred Extremities exam: ABSENT: clubbing, full ROM, joint swelling Musculoskeletal exam: PRESENT: normal inspection. ABSENT: deformity, dislocation Neurological exam: PRESENT: alert, awake, oriented to person, oriented to place , oriented to time, oriented to situation, CN II-XII grossly intact. ABSENT: motor sensory deficit Psychiatric exam: PRESENT: appropriate affect, normal mood Skin exam: PRESENT: dry, intact, warm Results Laboratory Results: 06/10/18 09:48 06/11/18 17:47 06/11/18 17:47 Creatinine 0.63 Est GFR ( Amer) > 60 Est GFR (Non-Af Amer) > 60 Impressions: Foot X-Ray 06/07/18 19:56 IMPRESSION: Soft tissue swelling. No osseous abnormality is appreciated. Qualifiers - * PATIENT BEING DISCHARGED WITH ANY OF THE FOLLOWING DIAGNOSIS: No VTE patient discharged on overlapping Therapy?: Yes Reason(s) for not prescribing Overlap Therapy:: Medical Contraindication, Propensity to reaction Stroke Pt being discharged on Anti-thrombolytic therapy?: Yes
== END 2018-06-11 18:57 | disposition home or self-care (01) | DRG 603 ==
LOC: ER 16:47 → EH 06-08 00:53 → 4W 06-08 09:29 → 4N 06-08 12:30
PROVIDERS: ADMIT Internal Medicine; ATTEND Internal Medicine
PROC: 0HBMXZX Excision of Right Foot Skin, External Approach, Diagnostic (ICD-10-PCS; principal; 2018-06-09 08:30)
DX: L02.611 Cutaneous abscess of right foot (principal); L03.116 Cellulitis of left lower limb; L03.115 Cellulitis of right lower limb; E11.9 Type 2 diabetes mellitus without complications; B96.5 Pseudomonas (aeruginosa) (mallei) (pseudomallei) as the cause of diseases classified elsewhere; B95.61 Methicillin susceptible Staphylococcus aureus infection as the cause of diseases classified elsewhere; B95.0 Streptococcus, group A, as the cause of diseases classified elsewhere; F17.210 Nicotine dependence, cigarettes, uncomplicated; M54.9 Dorsalgia, unspecified; G89.29 Other chronic pain
CPT/HCPCS: 36415; 400; 80048; 80053; 80202; 82550; 82565; 83605; 85025; 87015; 87040; 87070; 87075; 87077; 87116; 87186; 87205; 87206; 93005; 93010; 96365; 96366; 96375; 99284; J0131; J1644; J1956; J2250; J2270; J2405; J2543; J2704; J3010; J3370; J3490; J7030; J7060